=== PATIENT | male | born 2000 | race Caucasian/White ===

== ENCOUNTER 2024-07-01 01:02 | Outpatient (CLI) | payer MEDICAID, SELFPAY ==
--- NOTE | 2024-07-01 07:15 | DI.MRI_ITS ---
Exam(s) MR UPPER JOINT RT WO EXAM: MR UPPER JOINT RT WO CLINICAL HISTORY: evAluate pathology,RT WRIST PAIN,M25.531, INJURY, SUSPECT TENDON INJURY. TECHNIQUE: Multiplanar multisequence MRI was performed. COMPARISON: None. FINDINGS: The examination is limited due to patient motion artifact. BONES: There is a fracture through the mid pole of the scaphoid. There is a subchondral cyst seen in the distal pole measuring 6 mm. There is hyperintense signal on the T2 weighted images in the dista l pole. There is also mild edema seen along the fracture site in the proximal pole. Marrow signal i s otherwise unremarkable. JOINTS: There is a small amount of fluid in the radiocarpal joint. The carpal joints are unremarkabl e. TENDONS: Flexors: Unremarkable. Extensors: Unremarkable. MUSCLES: Unremarkable. MEDIAN NERVE: Unremarkable on this noncontrast examination. ULNAR NERVE: Unremarkable on this noncontrast examination. SOFT TISSUES: There is a small 3 mm fluid collection adjacent to the scaphoid which may represent a g anglion cyst. LIGAMENTS: Unremarkable. TRIANGULAR FIBROCARTILAGE: Unremarkable. OTHER: IMPRESSION: 1. No evidence of a tendon tear. 2. Fracture of the mid pole of the scaphoid. This is of indeterminate age. The findings suggest non union with cyst formation. Correlation with CT or plain films is recommended. Correlation with scott ent's clinical history is also suggested. If there are prior films for comparison they may be submit keli and an addendum will be issued. 3. 3 mm fluid collection adjacent to the scaphoid which may represent a small ganglion cyst. DATA REPOSITORY:
== END 2024-07-01 01:22 ==
LOC: DI 01:03
PROVIDERS: Visit Provider Nurse Practitioner Family
DX: M25.531 Pain in right wrist (principal)
CPT/HCPCS: 73221